=== PATIENT | female | born 1960 | race Caucasian/White ===

== ENCOUNTER → 2024-05-07 16:30 | Outpatient (REF) | payer MEDICARE, OTHER, SELFPAY | LOC: RAD 16:30 | PROVIDERS: ATTENDING PHYSICIAN Family Medicine | DX: Z87.891 Personal history of nicotine dependence (principal); R05.3 Chronic cough | CPT/HCPCS: 71250 ==

== ENCOUNTER → 2024-05-10 14:51 | Outpatient (REF) | payer MEDICARE, OTHER, SELFPAY | LOC: WDC 14:51 | PROVIDERS: ATTENDING PHYSICIAN Family Medicine | DX: Z12.31 Encounter for screening mammogram for malignant neoplasm of breast (principal) | CPT/HCPCS: 77063; 77067 ==

== ENCOUNTER 2024-05-31 07:13 | Outpatient (RCR) | payer MEDICARE, OTHER, SELFPAY | END 2024-05-31 23:59 | disposition home or self-care (01) | LOC: RPT 07:13 | PROVIDERS: ATTENDING PHYSICIAN Family Medicine | DX: M54.16 Radiculopathy, lumbar region (principal); Z73.6 Limitation of activities due to disability | CPT/HCPCS: 97112; 97162 ==

== ENCOUNTER 2024-06-19 12:08 | Outpatient (RCR) | payer MEDICARE, OTHER, SELFPAY | END 2024-06-19 23:59 | disposition home or self-care (01) | LOC: RPT 12:08 | PROVIDERS: ATTENDING PHYSICIAN Family Medicine | DX: M54.16 Radiculopathy, lumbar region (principal); Z73.6 Limitation of activities due to disability; R26.2 Difficulty in walking, not elsewhere classified; M62.81 Muscle weakness (generalized) | CPT/HCPCS: 97110; 97112 ==

== ENCOUNTER 2024-11-30 14:58 | Outpatient (RCR) | payer MEDICARE, OTHER, SELFPAY | END 2024-11-30 23:59 | disposition home or self-care (01) | LOC: RPT 14:58 | PROVIDERS: ATTENDING PHYSICIAN Specialist; FAMILY PHYSICIAN Family Medicine | DX: G20.A1 Parkinson's disease without dyskinesia, without mention of fluctuations (principal); Z73.6 Limitation of activities due to disability | CPT/HCPCS: 97110; 97112; 97163; 97166; 97530; 97535 ==

== ENCOUNTER 2024-12-07 15:12 | Outpatient (RCR) | payer MEDICARE, OTHER, SELFPAY | END 2024-12-07 23:59 | disposition home or self-care (01) | LOC: RPT 15:12 | PROVIDERS: ATTENDING PHYSICIAN Specialist; FAMILY PHYSICIAN Family Medicine | DX: G20.A1 Parkinson's disease without dyskinesia, without mention of fluctuations (principal); Z73.6 Limitation of activities due to disability | CPT/HCPCS: 97110; 97112; 97530 ==

== ENCOUNTER → 2025-05-13 15:14 | Outpatient (REF) | payer MEDICARE, OTHER, SELFPAY | LOC: WDC 15:14 | PROVIDERS: ATTENDING PHYSICIAN Nurse Practitioner Adult Health; FAMILY PHYSICIAN Family Medicine | DX: Z12.31 Encounter for screening mammogram for malignant neoplasm of breast (principal) | CPT/HCPCS: 77063; 77067 ==

== ENCOUNTER 2025-06-02 15:53 | Emergency (ER) | payer MEDICARE, OTHER, SELFPAY ==
[2025-06-02 15:54] VITALS: BP 170/102
--- NOTE | 2025-06-02 17:21 | ED.GENMED ---
History of Present Illness
General
Chief Complaint: Headache
Time Seen by Provider: 06/02/25 17:20
History of Present Illness
History of Present Illness:
FOCUSED PAST MEDICAL HISTORY
- The patient has history of migraines, Parkinson's,
REVIEW OF OLD RECORDS
- The patient has been getting physical therapy here related to Parkinson's. Last neuroimaging here with CT brain which showed no hemorrhage at that time but did show acute maxillary sinusitis in 2014.
Note:
CHIEF COMPLAINT(S)
Headache and nausea.
HISTORY OF PRESENT ILLNESS
The patient is a 65-year-old female with a history of migraines who presents with a persistent headache. The headache began on , and she initially took sumatriptan, but it did not alleviate the symptoms. She took another dose of sumatriptan
on Tuesday but experienced rebound headaches that progressed into a severe migraine. The patient reports associated nausea and vomiting but denies exposure to bright lights. She has been trying to reduce light exposure at home to manage her symptoms.
She has not been eating due to nausea. She also mentions a recent diagnosis of Parkinsons disease, which was made in September, though she is not currently on any medication for it.
PAST MEDICAL AND SURGICAL HISTORY
- Migraines
- Parkinsons disease diagnosed in September
EXTERNAL RECORDS REVIEWED
The physician reviewed previous imaging records, noting that the last CT scan of the brain was conducted in 2014.
CHRONIC MEDICAL CONDITIONS SIGNIFICANTLY AFFECTING CARE
Chronic conditions affecting care include migraines and Parkinsons disease.
PHYSICAL EXAM
-- General: Well appearing in no distress
- HEENT: Moist oral mucosa
- Cardiovascular: No murmurs, normal heart rate, regular rhythm, No chest wall tenderness
- Pulmonary: No respiratory distress, breath sounds are clear and equal
- Abdomen: Soft with no peritoneal signs, no tenderness
- Neurologic: The patient does have bradykinesia noted when walking, however she has no significant ataxia, she has no focal motor loss
- Psychiatric: Appropriate mental status, normal insight and judgement
- Extremities: Nontender, no edema, moves all extremities equally
- Skin: No rash, no lesions
PLAN
Consideration of administration of metoclopramide for nausea treatment, although there is hesitation due to the patients Parkinsons diagnosis and the potential effects on dopamine.
DIFFERENTIAL DIAGNOSIS
The Differential Diagnosis includes, in no particular order and is not limited to:
- Migraine
- Parkinsons disease-related symptoms
- Tension headache
- Rebound headache
- Cluster headache
- Temporal arteritis
- Subarachnoid hemorrhage
- Medication overuse headache
- Post-concussion headache
- Meningitis
SUMMARY OF ENCOUNTER
The patient presented to the emergency department with a persistent migraine headache and nausea following unsuccessful treatment with sumatriptan. There is a history of migraines, and she was recently diagnosed with Parkinsons disease. Past medical
records, including a CT scan from 2014, were reviewed. The treatment plan involves considering the administration of metoclopramide for nausea relief, balancing the risk of exacerbating Parkinsonian symptoms. Continued observation and review of her
records are planned to guide management.
DISPOSITION
Pending further records review and management decision.
MEDICAL DECISION MAKING
- Number and Complexity of Problems Addressed:
Chronic conditions affecting care include migraines and Parkinsons disease.
Differential Diagnosis list considered.
- Data:
Category 1:
Reviewed past CT imaging records from 2014.
Category 3:
Discussion of potential metoclopramide use for nausea management in relation to Parkinsons symptoms. Will hold off on use of metoclopramide given her history of Parkinson's.
DIAGNOSIS
- Migraine (ICD-10: G43.909)
- Nausea and vomiting (ICD-10: R11.2)
- Parkinsons disease (ICD-10: G20)
SUMMARY OF ENCOUNTER
The patient, a 65-year-old female with a history of migraines and a recent diagnosis of Parkinsons disease, presented to the emergency department due to a persistent headache not relieved by previous doses of sumatriptan. The patient reported
associated nausea and vomiting. In the ED, due to the patients Parkinsons diagnosis, metoclopramide (Reglan) was avoided. Instead, ketorolac was administered initially, followed by ondansetron for nausea, and dihydroergotamine (D.H.E) was given for
headache alleviation. The combination of treatments resulted in the resolution of the headache and improvement in nausea. Due to potential drug interactions and safety concerns with Parkinsons, ondansetron was not prescribed for home use.
DISPOSITION
Discharge.
ASSESSMENT
The patient presented with a severe migraine accompanied by nausea. There was a successful response to treatment in the emergency department with headache resolution and improved nausea.
PLAN
1. Discharge the patient with advice for outpatient follow-up.
2. Encourage the patient to see a neurologist as scheduled for ongoing management of migraines and Parkinsons disease.
3. Recommend avoiding over-reliance on medications that could interact negatively due to the patients current medical conditions.
INDEPENDENT REVIEW OF LABS AND INTERPRETATION OF TESTS
None directly reviewed during the encounter.
ADDITIONAL TESTING AND IMAGING CONSIDERED
Ondansetron prescription was considered but contraindicated for home usage due to potential interactions related to the patients condition.
PATIENT EDUCATION AND COUNSELING
The patient was educated on the importance of avoiding certain medications that may negatively interact with her current health conditions, particularly with her Parkinsons diagnosis. She was reassured about the headache improvement and encouraged
to attend her upcoming neurologist appointment.
FOLLOW-UP INSTRUCTIONS
Advise follow-up with a neurologist as already planned for further evaluation and management of Parkinsons disease and migraines.
MEDICATION RECONCILIATION
Administered in ED:
- Ketorolac for headache.
- Ondansetron for nausea.
- Dihydroergotamine (D.H.E) for headache.
MEDICAL DECISION MAKING
- Number and Complexity of Problems Addressed: Chronic conditions affecting care include migraines and Parkinsons disease. Differential diagnoses considered included migraine, tension headache, and medication overuse headache.
- Data:
Category 1:
Reviewed previous considerations of drug interactions with ondansetron and its contraindication for home use given the patients Parkinsons disease.
Category 2:
None.
Category 3:
Discussion of management included potential drug interactions with ongoing Parkinsons therapy and the impact on safe prescribing.
-Risk:
Prescription medication for migraines and nausea were administrated judiciously in the ED with consideration to avoid exacerbation of the patients Parkinsonian symptoms.
DIAGNOSIS
- Migraine (ICD-10: G43.909)
- Nausea and vomiting (ICD-10: R11.2)
- Parkinsons disease (ICD-10: G20)
LABS
CBC unremarkable, potassium slightly low at 3.1.
Past History
Past History
ED Past Medical History: HTN, Psychiatric and Other (migraines, IBS)
Social History
Tobacco: Former smoker
Alcohol: Occasional
Personal: Other (Seperated)
Living: alone
Family History
Family History: Other (Nonsignificant. No past medical history of polycystic kidney disease nor connective tissue disease)
Phy Exam
Physical Exam
Physical Exam:
See HPI
Course
Orders/Labs/Results
Orders:
Orders
06/02/25 17:29
0.9% Sodium Chloride 1000 ml [Nss] 1,000 ml IV BOLUS
Ketorolac [Toradol] 15 mg IV NOW STA
Ondansetron Injectable [Zofran] 4 mg IV NOW STA
06/02/25 17:54
Complete Blood Count/With Diff Urgent
Comprehensive Metabolic Panel Urgent
06/02/25 19:24
Dihydroergotamine Mesylate [Dhe-45] 1 mg IV NOW STA
06/02/25 20:59
Potassium Chloride Powder [Klor-Con] 20 meq PO NOW STA
Abnormal Lab Results
06/02/25
17:54
RBC 4.17 L 10^6/uL
(4.20-5.40)
MCH 32.1 H pg
(27.0-31.0)
Absolute Neuts (auto) 7.0 H 10^3/uL
(1.4-6.5)
Neutrophils % 75.8 H %
(42.2-75.2)
Lymphocytes % 17.7 L %
(20.5-51.1)
Sodium 134 L mmol/L
(135-145)
Potassium 3.1 L mmol/L
(3.5-5.1)
Glucose 105 H mg/dl
(70-99)
06/02/25 17:54
06/02/25 17:54
Vital Signs
Initial and Last Documented VS:
Initial Vital Signs
Temp Pulse Resp BP Pulse Ox
36.4 C 76 18 170/102 96
06/02/25 15:54 06/02/25 15:54 06/02/25 15:54 06/02/25 15:54 06/02/25 15:54
Last Documented Vital Signs
Temp Pulse Resp BP Pulse Ox
36.4 C 54 16 139/72 95
06/02/25 15:54 06/02/25 20:37 06/02/25 18:23 06/02/25 19:00 06/02/25 20:33
*Pulse Oximetry
SaO2: 96
Oxygen Mode of Delivery: Room air
Patient hypoxic: no
*Critical Care Note
Total Time (30-74mins, 75-104mins- exclusive of procedures): Not Applicable
ED Attending Note
-
Portions of this chart may have been created with voice recognition software.� Occasional wrong word or��sound alike� substitutions may have occurred due to the inherent limitations of voice recognition software.
Discharge Plan
Departure
Patient Disposition: Home (Routine Discharge)
Date of Disposition: 06/02/25
Time of Disposition: 20:57
Patient with high blood pressure during this ER visit?: Yes
Discharge Problem:
Migraine
Instructions: Migraines (DC), Headache, Adult (DC), BLOOD PRESSURE
Prescriptions:
No Action
sumatriptan succinate [Imitrex] 25 MG tablet
100 mg PO PRN PRN (Reason: migraine)
topiramate 25 MG tablet
100 mg PO BID
Magnesium
800 tab PO DAILY
Patient Comments:
pt. states that she takes 500-1000mg a day.
clonazepam 0.5 MG tablet
0.5 mg PO HSPRN PRN (Reason: sleep)
fluticasone propionate [24 Hour Allergy Relief] 15.8 ML spray,suspension
1 spray intranasal DAILY
potassium chloride 10 MEQ tablet,ER particles/crystals
20 meq PO DAILY
bupropion HCl 100 MG tablet sustained-release 12 hr
100 mg PO DAILY
Patient Comments:
Patient says taking differently than prescribed - takes 100 mg PO daily in the morning instead of prescribed 200 mg PO daily
levothyroxine 25 MCG tablet
25 mcg PO DAILY AT 0700
quetiapine 25 MG tablet
50 mg PO HS
escitalopram oxalate 20 MG tablet
20 mg PO HS
hydrochlorothiazide 25 MG tablet
25 mg PO DAILY
losartan 100 MG tablet
100 mg PO DAILY
biotin 1,000 MCG tablet,chewable
1,000 mcg PO DAILY
docusate sodium 100 MG capsule
100 mg PO BID 0RF
oxycodone 5 MG tablet
5 mg PO Q4HPRN PRN (Reason: severe pain when patria PO) Qty: 8 0RF
Referrals:
Gen Faith MD [Family Provider, Family Practice]
Activity Restrictions/Additional Instructions:
We initially gave you Toradol with Zofran. We held off on giving her Reglan as it could make Parkinson symptoms worse. We then gave DHE which seems to have helped. Return here if worse or other concerns. Follow-up with your neurologist.
Interventions
Interventions:
*Risk Screen - Suicide Last Done: 06/02/25 15:54
*General Assessment Last Done: 06/02/25 15:54
*Neglect/Abuse Screening Last Done: 06/02/25 18:07
*ED- Fall Risk Assessment Last Done: 06/02/25 18:07
*ED COVID-19 Vaccine History Last Done: 06/02/25 18:07
*Nursing Disposition Last Done: 06/02/25 21:42
ED- Neurological Assessment Last Done: 06/02/25 18:06
Discharge Date and Time
Discharge Date/Time: 06/02/25 21:43
Print Language: PALESTINIAN
[2025-06-02] MEDS: NSS 1000 IV (17:57)
[2025-06-02] MEDS: ZOFRAN 4 MG IV (17:57)
[2025-06-02] MEDS: TORADOL 15 MG IV (17:57)
[2025-06-02 17:59] LABS: Hematocrit 37.8 % (37.0-47.0); Hemoglobin 13.4 g/dL (12.0-16.0); Mean Corp Hgb Conc. 35.4 g/dL (33.0-37.0); Mean Corpuscular Volume 90.6 fL (81.0-99.0); Nucleated Red Blood Cells % 0 %; Platelet Count 278 10^3/uL (130-400); Red Cell Dist. Width 12.5 % (11.5-14.5)
[2025-06-02 18:04] VITALS: BP 149/87
[2025-06-02 18:05] VITALS: BMI 32.3
[2025-06-02 18:15] LABS: ALT (SGPT) 31 U/L (0-35); AST (SGOT) 30 U/L (14-36); Albumin 4.6 g/dl (3.5-5.0); Alkaline Phosphatase 109 U/L (38-126); Blood Urea Nitrogen 16 mg/dl (7-17); Calcium 9.6 mg/dl (8.4-10.2); Carbon Dioxide 26 mmol/L (22-30); Chloride 103 mmol/L (98-107); Estimated Creatinine Clearance 73 ml/min; Glucose 105 mg/dl (70-99); Potassium 3.1 mmol/L (3.5-5.1); Sodium 134 mmol/L (135-145); Total Protein 7.1 g/dl (6.3-8.2); eGFR > 60.00
[2025-06-02 19:00] VITALS: BP 139/72
[2025-06-02] MEDS: DHE-45 1 MG IV (19:53)
[2025-06-02] MEDS: KLOR-CON 20 MEQ PO (21:05)
== END 2025-06-02 21:43 | disposition home or self-care (01) ==
LOC: EMR 15:53
PROVIDERS: EMERGENCY PHYSICIAN Emergency Medicine; FAMILY PHYSICIAN Family Medicine
DX: G43.909 Migraine, unspecified, not intractable, without status migrainosus (principal); I10 Essential (primary) hypertension; G20.A1 Parkinson's disease without dyskinesia, without mention of fluctuations; K58.9 Irritable bowel syndrome, unspecified; Z87.891 Personal history of nicotine dependence
CPT/HCPCS: 99284; 96374; 96375 ×2; 96361; 80053; 85025